=== PATIENT | female | born 2005 | race Caucasian/White ===

== ENCOUNTER 2024-06-02 17:39 | Emergency (ER) | payer OTHER ==
[~2024-06-02] VITALS: Ht 172.7 cm; Wt 77.3 kg
[2024-06-02 17:45] VITALS: TEMP 98.2
[2024-06-02] MEDS ORDERED: methylPREDNISolone Sod Succ 125 MG/2 ML VIAL IV ONE (18:00)
[2024-06-02] MEDS ORDERED: diphenhydrAMINE 50 MG/ML 1 ML VIAL IV ONE (18:00)
[2024-06-02] MEDS ORDERED: PREDNISONE20 MG PO (21:14)
[2024-06-02 21:15] VITALS: BP 104/79; PULSE 51
== END 2024-06-02 21:15 | disposition home or self-care (01) ==
LOC: COL.ER 17:39
DX: T78.1XXA Other adverse food reactions, not elsewhere classified, initial encounter (principal)
CPT/HCPCS: J1200; J2919